=== PATIENT | male | born 2000 | race Caucasian/White ===

== ENCOUNTER 2021-12-18 22:58 | Emergency (ER) | payer OTHER ==
[~2021-12-18] VITALS: Ht 170.2 cm; Wt 62.0 kg
== END 2021-12-19 02:30 | disposition home or self-care (01) ==
LOC: ED 22:58
DX: B34.9 Viral infection, unspecified (principal); Z20.822 Contact with and (suspected) exposure to COVID-19
CPT/HCPCS: 87502; 99283; C9803; U0003

== ENCOUNTER 2021-12-22 15:37 | Emergency (ER) | payer OTHER ==
[~2021-12-22] VITALS: Ht 170.2 cm; Wt 62.0 kg
--- OUTSIDE RECORDS SUMMARY | 2021-12-22 15:44 | XMS ---
PreManage Notification: AMALIA MICHELLE Security Sales Professional Events No recent Security Events currently on file CRITERIA MET - [facility] - 2 Visits in 30 Days CARE PROVIDERS There are no care providers on record at this time. Aby has no Care Guidelines for this patient. [facility]12 MO.) [facility] NOTE: Visits indicate total known visits[facility] ED[facility] VISIT TRACKING (12 MO.) [facility] [place] [facility] COMPLAINT: - NECK PAIN 12/18/2021 22:[address] [facility] [place] TYPE: Emergency COMPLAINT: - MULTIPLE COMPLAINTS DIAGNOSES: - Myalgia, unspecified site - Contact with and (suspected) exposure to COVID-19 - Viral infection, unspecified INPATIENT VISIT TRACKING (12 MO.) No inpatient visits to display in this time frame [email or web address]
== END 2021-12-22 20:39 | disposition short-term general hospital (02) ==
LOC: ED 15:37
DX: S06.0X0A Concussion without loss of consciousness, initial encounter (principal); M54.2 Cervicalgia; M79.644 Pain in right finger(s); V43.62XA Car passenger injured in collision with other type car in traffic accident, initial encounter; Z20.822 Contact with and (suspected) exposure to COVID-19
CPT/HCPCS: 71046; 72040; 72070; 72125; 73140; 87502; C9803; J1170; J1885; J7040; U0003